=== PATIENT | female | born 1940 | race American Indian/Alaskan Native ===

== ENCOUNTER 2017-05-02 14:01 | Emergency (ER) | payer MEDICARE ==
[2017-05-02 17:22] LABS: Basophils # (Auto) 0.1 K/mm3 (0.0-0.1); Basophils % (Auto) 1.4 % (0.0-1.8); Eosinophils # (Auto) 0.2 K/mm3 (0.0-0.4); Eosinophils % (Auto) 3.3 % (0.0-4.3); Hematocrit 36.9 % (30.3-42.9); Hemoglobin 12.4 gm/dl (10.1-14.3); Lymphocytes # (Auto) 2.9 K/mm3 (1.2-5.4); Lymphocytes % (Auto) 44.8 % (13.4-35.0); Mean Corpuscular HGB Conc 34 % (30-34); Mean Corpuscular Hemoglobin 30 pg (28-32); Mean Corpuscular Volume 88 fl (79-97); Monocytes # (Auto) 0.5 K/mm3 (0.0-0.8); Monocytes % (Auto) 7.5 % (0.0-7.3); Platelet Count 246 K/mm3 (140-440); Red Blood Count 4.19 M/mm3 (3.65-5.03); Red Cell Distribution Width 12.6 % (13.2-15.2)
[2017-05-02 17:47] LABS: BUN/Creatinine Ratio 24; Blood Urea Nitrogen 19 mg/dL (7-17); Calcium 9.4 mg/dL (8.4-10.2); Hemolysis Index 3
[2017-05-02 21:48] VITALS: BP 158/70
--- NOTE | 2017-05-02 22:53 | Emergency Department Report ---
ED Headache HPI - General Chief Complaint: Headache Stated Complaint: PINTO Time Seen by Provider: 05/02/17 22:08 - History of Present Illness Initial Comments: Patient sent from unwanted and having a headache. The headache is at the vertex of the head. She said she hit her head on a piece of food. And since then she's been having ache which is of moderate intensity intermittent nonradiating with no aggravating or relieving factor. She also has some intermittent pain in her neck. No neck stiffness or fever. Patient also complaining of blurry vision and seeing floaters. She said this started about 1 -2 weeks after the head trauma. She went to the primary care md who examined the eyes and said the pressure in one of a eye was elevated and wanted to see her again on Tuesday. Timing/Duration: waxing and waning Quality: moderate Head Injury Location: other (vertex) Recent Head Trauma: head trauma > 24 hrs ago Allergies/Adverse Reactions: Allergies No Known Allergies Allergy (Verified 05/02/17 15:11) ED Review of Systems ROS: Stated complaint: PINTO Other details as noted in HPI Comment: All other systems reviewed and negative ED Past Medical Hx - Past Medical History Previous Medical History?: No - Surgical History Past Surgical History?: Yes Additional Surgical History: hysterectomy - Social History Smoking Status: Never Smoker Substance Use Type: None ED Physical Exam - General Limitations: No Limitations General appearance: alert, in no apparent distress - Head Head exam: Present: atraumatic, normocephalic - Eye Eye exam: Present: normal appearance - ENT ENT exam: Present: mucous membranes moist - Neck Neck exam: Present: normal inspection, full ROM. Absent: tenderness - Respiratory Respiratory exam: Present: normal lung sounds bilaterally. Absent: respiratory distress - Cardiovascular Cardiovascular Exam: Present: regular rate, normal rhythm. Absent: systolic murmur, diastolic murmur, rubs, gallop - GI/Abdominal GI/Abdominal exam: Present: soft, normal bowel sounds - Rectal Rectal exam: Present: deferred - Extremities Exam Extremities exam: Present: normal inspection, full ROM - Back Exam Back exam: Present: normal inspection, full ROM - Neurological Exam Neurological exam: Present: alert, oriented X3, CN II-XII intact - Psychiatric Psychiatric exam: Present: normal affect, normal mood - Skin Skin exam: Present: warm, dry, intact, normal color. Absent: rash ED Course Vital Signs 05/02/17 05/02/17 15:07 21:47 Temperature 98.2 F Pulse Rate 71 62 Respiratory 16 18 Rate Blood Pressure 141/37 Blood Pressure 158/70 [Left] O2 Sat by Pulse 100 98 Oximetry ED Medical Decision Making - Lab Data Result diagrams: 05/02/17 16:52 05/02/17 16:52 Critical care attestation.: If time is entered above; I have spent that time in minutes in the direct care of this critically ill patient, excluding procedure time. ED Disposition Clinical Impression: Scalp contusion Disposition: - TO HOME OR SELFCARE Is pt being admited?: No Does the pt Need Aspirin: No Condition: Stable Instructions: Scalp Contusion in Adults (ED) Additional Instructions: Tick [id number] Tylenol as needed for pain. Follow-up with the primary care md as scheduled on this Tuesday Referrals: PRIMARY CARE, [Primary Care Provider] - 3-5 Days Time of Disposition: 22:55 Print Language: SCOTTISH
== END 2017-05-02 23:30 | disposition home or self-care (01) ==
LOC: ED 14:01
DX: S00.03XA Contusion of scalp, initial encounter (principal); W22.8XXA Striking against or struck by other objects, initial encounter; Y93.89 Activity, other specified; Y92.89 Other specified places as the place of occurrence of the external cause; Y99.8 Other external cause status
CPT/HCPCS: 36415; 80048; 85025; 99283

== ENCOUNTER 2017-06-09 15:06 | Emergency (ER) | payer MEDICARE ==
--- NOTE | 2017-06-09 16:30 | Emergency Department Report ---
[facility] Doc - Documentation Documentation: Patient is a 76-year-old female who is presenting with headaches. Patient states she's been having headaches for approximately 3 months off and on. Patient states this is a daily occurrence but does wax and wane throughout the day. Patient states is throbbing sensation. Patient states that she hit her head approximately a year ago and was initially seen spots and floaters this is mostly improved. Headaches again did not start until several months ago. Patient states yesterday she had some nausea vomiting and dizziness when she turns her head in certain way. Patient never received a CT head after the head injury or at the initiation of these headaches that are daily. CT will be performed to rule out any structural abnormalit patient also have a urinalysis done rule out a UTI. Y.
--- NOTE | 2017-06-09 17:18 | Cat Scan Report ---
FINAL REPORT EXAM: CT HEAD/BRAIN WO CON HISTORY: headaches TECHNIQUE: CT examination of the head without IV contrast PRIORS: None. FINDINGS: No acute air-fluid level visualized in the included air-filled sinuses. Bone windows demonstrate no acute fracture. There is ventricular and sulcal prominence compatible with global cerebrocortical atrophy. The brain contains no mass, mass effect, hemorrhage, or acute infarct. There is no extra-axial intracranial bleed, brain bleed, or midline shift. IMPRESSION: No acute CVA, intracranial bleed, or brain mass
--- NOTE | 2017-06-09 17:22 | Emergency Department Report ---
ED Headache HPI - General Chief Complaint: Headache Stated Complaint: HEADACHE Time Seen by Provider: 06/09/17 16:21 Source: patient Exam Limitations: no limitations - History of Present Illness Initial Comments: Patient is a 76-year-old female who is presenting with headaches. Patient states she's been having headaches for approximately 3 months off and on. Patient states this is a daily occurrence but does wax and wane throughout the day. Patient states is throbbing sensation. Patient states that she hit her head approximately a year ago and was initially seen spots and floaters this is mostly improved. Headaches again did not start until several months ago. Patient states yesterday she had some nausea vomiting and dizziness when she turns her head in certain way. Headache is 4 out of 10 and she said it's located frontally. She says she's been taking over- the-counter Tylenol without any relief. Denies any neck pain or stiffness. Denies any fever or chills. Denies any urinary burning frequency or urgency. Timing/Duration: episodic, waxing and waning, other (3 months) Quality: mild, achy Head Injury Location: frontal Recent Head Trauma: frequent headaches, chronic headaches, head trauma > 24 hrs ago (head trauma approximately one year ago) Modifying Factors: improves with: movement Associated Symptoms: nausea/vomiting, other (dizziness). denies: confusion, fatigue, fever/chills, flushing, loss of consciousness, nasal congestion, nasal drainage, numbness in legs/feet, rash, seizures, sinus infection, stiff neck, vision changes, weakness Allergies/Adverse Reactions: Allergies No Known Allergies Allergy (Verified 06/09/17 15:43) Home Medications: Ambulatory Orders Meclizine [Antivert] 25 mg PO TID PRN #15 tablet 06/09/17 traMADol [Ultram] 50 mg PO Q6HR PRN #12 tablet 06/09/17 ED Review of Systems ROS: Stated complaint: HEADACHE Other details as noted in HPI Comment: All other systems reviewed and negative Constitutional: no symptoms reported Eyes: vision change (condition that she was seen spots occasionally which has resolved.). denies: eye pain, eye discharge ENT: denies: ear pain, throat pain, congestion Respiratory: no symptoms reported Cardiovascular: denies: chest pain, palpitations, dyspnea on exertion, edema, syncope, paroxysmal nocturnal dyspnea Gastrointestinal: nausea, vomiting. denies: abdominal pain, diarrhea, constipation, hematemesis, melena, hematochezia Genitourinary: denies: dysuria, hematuria Musculoskeletal: denies: back pain, joint swelling, arthralgia, myalgia Skin: denies: rash Neurological: headache, vertigo. denies: weakness, numbness, paresthesias, confusion, abnormal gait ED Past Medical Hx - Past Medical History Previous Medical History?: No - Surgical History Past Surgical History?: Yes Additional Surgical History: hysterectomy - Family History Family history: hypertension - Social History Smoking Status: Never Smoker Substance Use Type: None - Medications Home Medications: Home Medications Medication Instructions Recorded Confirmed Last Taken Type Meclizine [Antivert] 25 mg PO TID PRN #15 tablet 06/09/17 Unknown Rx traMADol [Ultram] 50 mg PO Q6HR PRN #12 tablet 06/09/17 Unknown Rx ED Physical Exam - General Limitations: No Limitations General appearance: alert, in no apparent distress - Head Head exam: Present: atraumatic, normocephalic, normal inspection, other (normal exam) - Eye Eye exam: Present: normal appearance, PERRL, EOMI. Absent: scleral icterus, conjunctival injection, nystagmus, periorbital swelling, periorbital tenderness Pupils: Present: normal accommodation - ENT ENT exam: Present: normal exam, normal orophraynx, mucous membranes moist, TM's normal bilaterally, normal external ear exam - Neck Neck exam: Present: normal inspection, full ROM, other (no C-spine tenderness). Absent: tenderness, meningismus, lymphadenopathy, thyromegaly - Respiratory Respiratory exam: Present: normal lung sounds bilaterally. Absent: respiratory distress, chest wall tenderness - Cardiovascular Cardiovascular Exam: Present: regular rate, normal rhythm, normal heart sounds. Absent: systolic murmur, diastolic murmur - GI/Abdominal GI/Abdominal exam: Present: soft, normal bowel sounds. Absent: distended, tenderness, guarding, rebound, rigid, organomegaly, mass, bruit, pulsatile mass , hernia - Extremities Exam Extremities exam: Present: normal inspection, full ROM, normal capillary refill , other (no clubbing, cyanosis or edema. +2 pulses to extremities and no neurovascular compromise). Absent: tenderness, pedal edema, joint swelling, calf tenderness - Back Exam Back exam: Present: normal inspection, full ROM, other (ambulates without any difficulties). Absent: tenderness, CVA tenderness (R), CVA tenderness (L), muscle spasm, paraspinal tenderness, vertebral tenderness, rash noted - Neurological Exam Neurological exam: Present: alert, oriented X3, normal gait, reflexes normal. Absent: motor sensory deficit - Expanded Neurological Exam Expanded Neurological exam: Absent: innattentive, memory loss-remote event, memory loss- recent event, ataxia, receptive aphasia, expressive aphasia, total aphasia, tremor, protecting the airway Patient oriented to: Present: person, place, time Speech: Present: fluid speech Cranial nerves: EOM's Intact: Normal, Gag Reflex: Normal, Tongue Deviation: Normal, Nystagmus: Normal, Facial Sensation: Normal Cerebellar function: Romberg: Normal Upper motor neuron: Pronator Drift: Normal, Sensory Extinction: Normal Sensory exam: Upper Extremity Light Touch: Normal, Upper Extremity Temperature: Normal, UE 2 Point Discrimination: Normal, Lower Extremity Light Touch: Normal, Lower Extremity Temperature: Normal, LE 2 Point Discrimination: Normal Motor strength exam: RUE: 5, LUE: 5, RLE: 5, LLE: 5 DTR: bicep (R): 2+, bicep (L): 2+, tricep (R): 2+, tricep (L): 2+, knee (R): 2+ , knee (L): 2+, ankle (R): 2+, ankle (L): 2+ Best Eye Response ([place]): (4) open spontaneously Best Motor Response ([place]): (6) obeys commands Best Verbal Response ([place]): (5) oriented [place] Total: 15 - Psychiatric Psychiatric exam: Present: normal affect, normal mood - Skin Skin exam: Present: warm, dry, intact, normal color. Absent: rash ED Course Vital Signs 06/09/17 15:39 Temperature 98.2 F Pulse Rate 72 Respiratory 16 Rate Blood Pressure 149/95 O2 Sat by Pulse 98 Oximetry - Reevaluation(s) Reevaluation #1: 06/09/17 18:48 Patient received Antivert 25 mg by mouth, Tylenol 650 mg. Emergency room. She says she feels better. Patient does have a primary care physician and she'll call tomorrow to schedule an appointment for follow-up visit. ED Medical Decision Making - Lab Data Lab Results 06/09/17 Range/Units 17:20 Urine Color Colorless (Yellow) Urine Turbidity Clear (Clear) Urine pH 8.0 H (5.0-7.0) Ur Specific [place] 1.003 (1.003-1.030) Urine Protein <15 mg/dl (Negative) mg/dL Urine Glucose (UA) Neg (Negative) mg/dL Urine Ketones Neg (Negative) mg/dL Urine Blood Neg (Negative) Urine Nitrite Neg (Negative) Urine Bilirubin Neg (Negative) Urine Urobilinogen < 2.0 (<2.0) mg/dL Ur Leukocyte Esterase Neg (Negative) Urine WBC (Auto) < 1.0 (0.0-6.0) /HPF Urine RBC (Auto) < 1.0 (0.0-6.0) /HPF - Radiology Data Radiology results: report reviewed CT scan of the head without contrast revealed no intracranial or extracranial abnormalities seen. Critical care attestation.: If time is entered above; I have spent that time in minutes in the direct care of this critically ill patient, excluding procedure time. ED Disposition Clinical Impression: Dizziness, nonspecific, Postconcussion syndrome, Elevated BP without diagnosis of hypertension Headache Qualifiers: Headache type: unspecified Headache chronicity pattern: episodic headache Intractability: not intractable Qualified Code(s): R51 - Headache Nausea with vomiting Qualifiers: Vomiting type: unspecified Vomiting Intractability: non-intractable Qualified Code(s): R11.2 - Nausea with vomiting, unspecified Disposition: DC-01 TO HOME OR SELFCARE Is pt being admited?: No Does the pt Need Aspirin: No Condition: Stable Instructions: Dizziness (ED), Vertigo (ED), Post Concussion Syndrome (ED), Acute Headache (ED), Acute Nausea and Vomiting (ED), Hypertension (ED) Additional Instructions: Please increase her fluid intake Follow-up with neurologist as instructed Take Antivert for dizziness. Your blood pressure was elevated today, please take your blood pressure daily and take your primary care physician with [facility] for evaluation. Take Ultram for headache but please do not drive or operate heavy machinery while taking this medication. Please call your primary care physician to schedule an appointment for follow- up visit. Call tomorrow. Prescriptions: Meclizine [Antivert] 25 mg PO TID PRN #15 tablet PRN Reason: dizziness traMADol [Ultram] 50 mg PO Q6HR PRN #12 tablet PRN Reason: Pain Referrals: ZANE STEWARD MD [Primary Care Provider] - 06/10/17 MELISA JOHANSEN MD [Staff Physician] - 06/14/17 Forms: Work/School Release Form(ED)
[2017-06-09] MEDS ORDERED: TYLENOL PO ONE (17:23)
[2017-06-09] MEDS ORDERED: ANTIVERT PO ONE (17:23)
[2017-06-09 17:32] LABS: Bilirubin,Urine NEG (Negative); Blood,Urine NEG (Negative); Color,Urine Colorless (Yellow); Protein,Urine <15 mg/dL mg/dL (Negative); RBC,Urine < 1.0 /HPF (0.0-6.0); Urobilinogen,Urine < 2.0 mg/dL (<2.0); WBC,Urine < 1.0 /HPF (0.0-6.0)
[2017-06-09 19:13] VITALS: BP 146/61
== END 2017-06-09 19:14 | disposition home or self-care (01) ==
LOC: ED 15:06
DX: F07.81 Postconcussional syndrome (principal); R42 Dizziness and giddiness; R11.2 Nausea with vomiting, unspecified; R03.0 Elevated blood-pressure reading, without diagnosis of hypertension; G89.29 Other chronic pain; Z90.710 Acquired absence of both cervix and uterus
CPT/HCPCS: 70450; 81001

== ENCOUNTER 2017-07-21 08:10 | Outpatient (CLI) | payer MEDICARE ==
--- NOTE | 2017-07-22 15:50 | Mammography Report ---
BILATERAL DIGITAL SCREENING MAMMOGRAM with CAD: 07/21/17 08:10:00 CLINICAL: Routine screening. COMPARISON:03/20/13 FINDINGS: The breasts are heterogeneously dense, which may obscure small masses. No mass, architectural distortion or suspicious calcifications. IMPRESSION: No mammographic evidence of malignancy. BI-RADS CATEGORY: 1 - - Negative RECOMMENDATION: Routine mammographic screening in one year. COMMENT: Patient follow-up letters are generated by our [employer] application.
== END 2017-07-21 08:11 | disposition home or self-care (01) ==
LOC: MAMMO 08:10
PROVIDERS: ATTEND Internal Medicine
DX: Z12.31 Encounter for screening mammogram for malignant neoplasm of breast (principal)
CPT/HCPCS: 77067

== ENCOUNTER 2021-03-18 08:59 | Outpatient (CLI) | payer MEDICARE ==
--- NOTE | 2021-03-19 09:24 | Mammography Report ---
DEXA BONE DENSITY SCAN INDICATION / CLINICAL INFORMATION: OSTEOPOROSIS. 80 years Female COMPARISON: None available. LUMBAR SPINE, L1-L4: - Bone mineral density (BMD) = 0.864 g/cm2. - T-score = -1.7 - Z-score = 1.0 Change (%) since most recent prior (if available): None available. LEFT HIP, NECK : - Bone mineral density (BMD) = 0.764 g/cm2. - T-score = -0.8 - Z-score = 1.5 Change (%) since most recent prior (if available): None available. IMPRESSION: 1. WHO Classification: Osteopenia. Fracture Risk: Increased. 2. 10-Year Fracture Risk (FRAX) = Major Osteoporotic Not reported.% / Hip: Not reported.% FRAX generally not reported for patients with normal or osteoporotic BMD, in [id number] joey ents younger than age 50, or in patients undergoing pharmacotherapy BMD Reporting Guidelines (ISCD, 2015) BMD Reporting in Postmenopausal Women and in Men Age 50 and Older - T-scores are preferred. - The WHO densitometric classification is applicable. BMD Reporting in Females Prior to Menopause and in Males Younger Than Age 50 - Z-scores, not T-scores, are preferred. This is particularly important in children. - A Z-score of -2.0 or lower is defined as below the expected range for age, and a Z-score above -2.0 is within the expected range for age. - Osteoporosis cannot be diagnosed in men under age 50 on the basis of BMD alone. - The WHO diagnostic criteria may be applied to women in the menopausal transition. http://www.iscd.org/official-positions/6277-qbpb-gmcbjljz-positions-adult/ Signer Name: Barber Mariscal DO Signed: 03/19/2021 9:19 AM Workstation Name: [email or web address]
--- NOTE | 2021-03-19 11:23 | Mammography Report ---
DIGITAL SCREENING MAMMOGRAM WITH CAD, 03/18/2021 CLINICAL INFORMATION / INDICATION: Routine screening mammography. SCREENING MAMMOGRAM TECHNIQUE: Digital bilateral 2D mammography was obtained in the craniocaudal and mediolateral obliqu e projections. This examination was interpreted with the benefit of Computer-Aided Detection analysis . COMPARISON: 03/23/2012 through 07/21/2017. FINDINGS: Breast Density: The breasts are heterogeneously dense, which may obscure small masses. No dominant mass, suspicious calcifications, or architectural distortion in either breast. IMPRESSION: No mammographic evidence of malignancy. Follow up recommendation: Routine yearly BI-RADS Category 1: Negative. A "normal" or negative report should not discourage follow up or biopsy of a clinically significant f inding. A written summary of these findings will be mailed to the patient. The patient will be entered into a mammography reporting system which will generate a reminder letter for the patient's next appointmen t at the appropriate interval. The [employer] recommends yearly mammograms starting at age 40 and continuing as l estrella as a woman is in good health. Breast MRI is recommended for women with an approximate 20-25% or greater lifetime risk of breast cancer, including women with a strong family history of breast or ova tori cancer or who have been treated for Hodgkin's disease. Signer Name: Ac Grimm MD Signed: 03/19/2021 11:19 AM Workstation Name: [email or web address]
== END 2021-03-18 09:00 | disposition home or self-care (01) ==
LOC: MAMMO 08:59
PROVIDERS: ATTEND Internal Medicine
DX: Z12.31 Encounter for screening mammogram for malignant neoplasm of breast (principal); M85.88 Other specified disorders of bone density and structure, other site; Z78.0 Asymptomatic menopausal state
CPT/HCPCS: 77067; 77080